=== PATIENT | male | born 1990 | race Caucasian/White ===

== ENCOUNTER 2022-06-19 20:20 | Emergency (ER) | payer SELFPAY ==
[~2022-06-19] VITALS: Ht 193 cm; Wt 104.3 kg
--- NOTE | 2022-06-19 20:28 | NUR ---
CALLED TO TRIAGE, NO RESPONSE
--- NOTE | 2022-06-19 20:37 | NUR ---
CALLED TO TRIAGE, NO ANSWER
[2022-06-19 20:55] VITALS: BP 169/97
--- NOTE | 2022-06-19 20:55 | NUR ---
BIBS C/O SPIDER BITE R ELBOW X2 DAYS AGO, REDNESS, SWELLING,& DISCHARGE "TAKING ANTIBIOTICS FROM OLD PRESCRIPTION BACTRIM BID & CLINDAMYCIN TID" PT A/OX4. TOLERATING R/A WELL WITH NO RESP DISTRESS. AMB WITH STEADY GAIT. SAFETY MEASURES IN PLACE.
--- NOTE | 2022-06-19 21:13 | NUR ---
DR. SUSAN PURDY AT PT'S BEDSIDE FOR EVAL
[2022-06-19] MEDS ORDERED: VANCOMYCIN 1 GM VIAL ONE (21:19)
--- NOTE | 2022-06-19 21:21 | NUR ---
REGI SHAIKH AT BEDSIDE
--- NOTE | 2022-06-19 21:22 | NUR ---
[employer]TAIL [employer] PROFESSIONAL AT BEDSIDE
[2022-06-19] MEDS ORDERED: VANCOMYCIN 1 GM in IV D5W 250 ML IV ONE (21:30)
--- NOTE | 2022-06-19 21:40 | NUR ---
PRIMER BOXER ORTHO DR. VENEGAS PAGED AT [phone].
--- NOTE | 2022-06-19 21:48 | NUR ---
COVID ANTIGEN SWAB COLLECTED AND SENT TO LAB
[2022-06-19] MEDS ORDERED: HYDROMORPHONE 1 MG/1 ML DISP.SYRIN IV ONE (22:00)
[2022-06-19] MEDS ORDERED: ONDANSETRON HCL/PF - ER 4 MG/2 ML VIAL IV ONE (22:00)
--- NOTE | 2022-06-19 22:06 | NUR ---
FACTORY MAINTENANCE MANAGER ORTHO DR. VENEGAS PAGED [phone].
--- NOTE | 2022-06-19 22:12 | NUR ---
PT HARD STICK, NO IV ACCESS OR BLOOD DRAW AT THIS TIME. DR SUSAN PURDY AWARE
[2022-06-19] MEDS ORDERED: CEFTRIAXONE 1 G VIAL ONE (22:26)
[2022-06-19] MEDS ORDERED: HYDROCODONE/APAP 10/325MG TABLET ONE (22:26)
[2022-06-19] MEDS ORDERED: SULFAMETH/TRIMETH 800/160 MG 1 UDTAB TABLET ONE (22:26)
[2022-06-19] MEDS ORDERED: LIDOCAINE HCL/PF 2 % 5ML SDV 5 ML VIAL ONE (22:27)
[2022-06-19] MEDS ORDERED: HYDROCODONE/APAP 10/325MG TABLET PO ONE (22:30)
[2022-06-19] MEDS ORDERED: SULFAMETH/TRIMETH 800/160 MG 1 UDTAB TABLET PO ONE (22:30)
[2022-06-19] MEDS ORDERED: CEFTRIAXONE 1 G VIAL IM ONE (22:30)
--- NOTE | 2022-06-19 22:36 | NUR ---
Patient does not wish to proceed with medical care recommended by Dr. Hernandez. Patient given information related to possible complications, up to and including , which could occur as a result of leaving the hospital at this time. Applied sling to R arm. Patient verbalizes understanding of risks involved due to leaving against medical advice. Patient has signed AMA form.
[2022-06-19 22:39] LABS: ALANINE AMINOTRANSFERASE 106 U/L (12-78); ALKALINE PHOSPHATASE 88 U/L (46-116); ASPARTATE AMINOTRANSFERASE 63 U/L (15-37); BILIRUBIN,DIRECT 0.1 mg/dL (0.0-0.2); BILIRUBIN,TOTAL 0.3 mg/dL (0.2-1.0); CALCIUM, SERUM 8.3 mg/dL (8.5-10.1); CARBON DIOXIDE 22 mmol/L (21-32); CHLORIDE 106 mmol/L (98-107); GLUCOSE 106 mg/dL (74-106); POTASSIUM 3.9 mmol/L (3.5-5.1); SODIUM SERUM 137 mmol/L (136-145); TOTAL PROTEIN, SERUM 7.4 g/dL (6.4-8.2); UREA NITROGEN, BLOOD 15 mg/dL (7-18)
[2022-06-19 23:47] LABS: ALBUMIN < 3.0 g/dL (3.4-5.0)
== END 2022-06-19 22:44 | disposition left against medical advice (07) ==
LOC: ER 20:30
DX: L02.511 Cutaneous abscess of right hand (principal); Z20.822 Contact with and (suspected) exposure to COVID-19
CPT/HCPCS: 99285; 87426; 96372; 76882; 80048; 80076; 36415; J0696; J3370; J2405; J3490; A4223; C9803